=== PATIENT | female | born 2000 | race Caucasian/White ===

== ENCOUNTER 2022-06-20 09:40 | Emergency (ER) | payer OTHER, SELFPAY ==
[2022-06-20 09:52] VITALS: BP 128/89; PULSE 119; RESP 18; TEMP 36.4; O2SAT 96
[2022-06-20 10:23] LABS: Strep A DNA Probe* NOT DETECTED (Not Detectd)
[2022-06-20 10:37] LABS: PCR FLU A Negative PCR FLU A (Negative); PCR FLU B Negative PCR FLU B (Negative); PCR RSV Negative PCR RSV (Negative)
[2022-06-20 10:39] LABS: SARS PCR* Negative SARS-CoV-2 (Negative)
--- NOTE | 2022-06-20 10:49 | ED.GENADULT ---
HPI - General Adult General Chief complaint: Fever Stated complaint: High fever for 3 days, swollen throught, dry mouth Time Seen by Provider: 06/20/22 10:20 Source: patient Mode of arrival: ambulatory Limitations: no limitations History of Present Illness HPI narrative: 22-year-old female coming in today complaining of congestion, ear pressure, sore throat going on for about 3 days. No fevers that she is aware of it every now and then she does feel chills. Normal appetite. No diarrhea. She has mild constipation. No chest pain. No cough. No sick contacts that she is aware of. Related Data Home Medications Medication Instructions Recorded Confirmed ibuprofen 200 mg capsule 200 mg PO Q6H PRN 04/29/22 06/08/22 norethindrone 1.5 mg-ethinyl tab 06/20/22 estradiol 30 mcg(21)/iron 75 mg(7) tablet (Kamini Fe .10/13 (28)) Previous Rx's Medication Instructions Recorded albuterol sulfate 90 mcg/actuation 2 puff inhalation QID Wheezing 06/08/22 aerosol inhaler #6.7 grams prednisone 20 mg tablet 20 mg PO BID Asthma #10 tabs 06/08/22 Allergies Allergy/AdvReac Type Severity Reaction Status Date / Time No Known Drug Allergies Allergy Verified 06/08/22 08:31 Review of Systems Status of ROS: Reports: 10 or more systems reviewed and unremarkable except as noted in History and below [facility] Medical History Cough Sinusitis Social History Smoking Status: Never smoker Exam Narrative: Exam Narrative: Well-nourished well-developed patient in no acute distress. Alert and oriented. Answers questions appropriately. Mood and affect are appropriate. Thoughts are goal oriented and rational. No tangential or magical thinking noted. Patient speaks in full sentences without needing to catch their breath. HEENT: Normocephalic atraumatic. Pupils are equally round reactive to light. Extraocular muscles are intact. Conjunctivae are moist without any icterus noted. Moist mucous membranes. Posterior pharynx is normal. Neck is soft without any lymphadenopathy or thyromegaly. No masses are appreciated. Cardiovascular: Heart is regular rate and rhythm S1 and S2 are present without any murmurs. Lungs: Clear to auscultation bilaterally no wheezes rhonchi or rales are appreciated. Patient takes deep breaths without any discomfort. Abdomen: Soft and nontender nondistended with normal bowel sounds. No guarding or rebound. No masses or organomegaly appreciated. Extremities: Bilateral lower extremities are without edema. Normal DP and PT pulses. Skin: Well perfused without any obvious rashes. Const: Vital Signs, click to edit/add: Vital Signs - 24 hr 06/20/22 09:52 Temperature 97.5 F L Pulse Rate [Right Pulse Oximeter] 119 H Respiratory Rate 18 Blood Pressure [Le ft Forearm] 128/89 Pulse Oximetry 96 Oxygen Delivery Me thod Room Air Course Course Hospital Course: Her triple swab and strep negative. Vital Signs Vital signs: Initial Vital Signs Temperature 97.5 F L 06/20/22 09:52 Temperature Source Temporal Artery Scan 06/20/22 09:52 Pulse Rate 119 H 06/20/22 09:52 Respiratory Rate 18 06/20/22 09:52 Blood Pressure 128/89 06/20/22 09:52 Blood Pressure Mean 102 06/20/22 09:52 Blood Pressure Position Sitting 06/20/22 09:52 Pulse Oximetry 96 06/20/22 09:52 Oxygen Delivery Method 06/20/22 09:52 Vital Signs Temperature 97.5 F L 06/20/22 09:52 Pulse Rate 119 H 06/20/22 09:52 Respiratory Rate 18 06/20/22 09:52 Blood Pressure 128/89 06/20/22 09:52 Pulse Oximetry 96 06/20/22 09:52 Oxygen Delivery Method 06/20/22 09:52 Temperature 97.5 F L 06/20/22 09:52 Pulse Rate 119 H 06/20/22 09:52 Respiratory Rate 18 06/20/22 09:52 Blood Pressure 128/89 06/20/22 09:52 Pulse Oximetry 96 06/20/22 09:52 Oxygen Delivery Method 06/20/22 09:52 Medical Decision Making MDM Narrative Medical decision making narrative: 22-year-old female with a URI. We discussed symptomatic treatment and reasons for follow-up. Lab Data Lab results reviewed: Yes I reviewed the patient's lab results Labs: Lab Results 06/20/22 06/20/22 Range/Units 09:52 09:52 SARS-CoV-2 (PCR) Negative SARS-CoV-2 (Negative) Influenza Type A (PCR) Negative PCR FLU A (Negative) Influenza Type B (PCR) Negative PCR FLU B (Negative) RSV (PCR) Negative PCR RSV (Negative) Group A Strep DNA NOT DETECTED (Not Detectd) Discharge Plan Discharge Clinical Impression: Upper respiratory infection Patient Disposition: Home, Self-Care Condition: Stable Additional Instructions: Get as much rest as you need to. Make sure to stay well hydrated. Okay to use ibuprofen or Tylenol for achiness. Prescriptions: No Action ibuprofen 200 mg capsule 200 mg PO Q6H PRN albuterol sulfate 90 mcg/actuation HFA aerosol inhaler 2 puff inhalation QID Qty: 6.7 2RF prednisone 20 mg tablet 20 mg PO BID Qty: 10 2RF norethindrone-e.estradiol-iron [Kamini Gaines 1.5/30 (28)] 1.5 mg-30 mcg (21)/75 mg (7) tablet Label Comments: TAKE 1 TABLET BY MOUTH DAILY Follow Up/Referrals: Provider,Not a Local [Primary Care Provider] - Stand Alone Forms: MyHealth Info Instructions
== END 2022-06-20 10:56 | disposition home or self-care (01) ==
PROVIDERS: Emergency Provider Family Medicine
DX: Z20.822 Contact with and (suspected) exposure to COVID-19 (principal); J06.9 Acute upper respiratory infection, unspecified
CPT/HCPCS: 87502; 87634; 87635; 87651; 99283